=== PATIENT | male | born 1995 | race African-American/Black ===

== ENCOUNTER 2017-06-22 20:36 | Emergency (ER) | payer MEDICAID ==
[~2017-06-22] VITALS: Ht 170.2 cm; Wt 90.0 kg
[~2017-06-22 20:36] MED LIST: GUAN1ER PO; LISD60 PO; RISP0.5T20 PO
[2017-06-22 20:37] VITALS: BP 137/81; PULSE 92; RESP 16; TEMP 98.8; O2SAT 99
== END 2017-06-22 23:26 | disposition left against medical advice (07) ==
LOC: NED 20:36
DX: J11.1 Influenza due to unidentified influenza virus with other respiratory manifestations (principal); Z53.21 Procedure and treatment not carried out due to patient leaving prior to being seen by health care provider
CPT/HCPCS: 99281